=== PATIENT | male | born 1975 | race Caucasian/White ===

== ENCOUNTER 2021-04-07 17:52 | Emergency (ER) | payer OTHER ==
[~2021-04-07] VITALS: Ht 152.4 cm; Wt 68.0 kg
[2021-04-07] MEDS ORDERED: OXYC30TA2 PO (18:17)
--- NOTE | 2021-04-07 18:20 | NUR ---
Pt refusing any blood test at this time "just want to see doctor and get pain meds"
[2021-04-07] MEDS ORDERED: HYDROMORPHONE 1 MG/1 ML DISP.SYRIN IM ONE (18:30)
[2021-04-07] MEDS ORDERED: HYDROMORPHONE 1 MG/1 ML DISP.SYRIN ONE (18:35)
--- NOTE | 2021-04-07 18:44 | NUR ---
pt asked for juice and crackers- tolerated well
[2021-04-07 18:54] VITALS: BP 128/81
--- NOTE | 2021-04-07 19:06 | NUR ---
Patient discharged to home in stable condition. Written and verbal after care instructions given. Patient verbalizes understanding of instruction.
--- NOTE | 2021-04-07 21:06 | NUR ---
CALLED CALL THE CAR AND SPOKE WITH JANN. RESERVATION NUMBER FOR PICKUP IS [id number]. ETA FOR TRANSPORT ETA IS 45-60 MIN
--- NOTE | 2021-04-07 22:44 | NUR ---
[facility] ETA IS 2330
== END 2021-04-07 18:54 | disposition home or self-care (01) ==
LOC: ER 17:54
DX: R10.9 Unspecified abdominal pain (principal); Z76.0 Encounter for issue of repeat prescription; F32.9 Major depressive disorder, single episode, unspecified; Z98.890 Other specified postprocedural states; Z88.0 Allergy status to penicillin; Z88.6 Allergy status to analgesic agent; Z88.1 Allergy status to other antibiotic agents; Z88.8 Allergy status to other drugs, medicaments and biological substances; Z59.00 Homelessness unspecified; Z79.899 Other long term (current) drug therapy
CPT/HCPCS: 96372; 99283; J1170

== ENCOUNTER 2025-03-08 15:47 | Emergency (ER) | payer OTHER ==
[~2025-03-08] VITALS: Ht 172.7 cm; Wt 74.8 kg
[~2025-03-08 15:47] MED LIST: OXYC30TA2 PO
[2025-03-08] MEDS ORDERED: dexaMETHasone SOD PHOSPHATE 4 MG/ML VIAL ONE (17:17)
[2025-03-08] MEDS ORDERED: GABAPENTIN 100 MG CAPSULE ONE (17:17)
[2025-03-08] MEDS: dexaMETHasone SOD PHOSPHATE 4 MG/ML VIAL IM ONE ×2 (17:35→18:38)
[2025-03-08] MEDS: GABAPENTIN 100 MG CAPSULE PO ONE (17:35)
[2025-03-08] MEDS ORDERED: dexaMETHasone SOD PHOSPHATE 1 ML ONE (18:27)
[2025-03-08] MEDS ORDERED: SUMATRIPTAN SUCCINATE 6 MG/0.5 ML VIAL SQ ONE (18:27)
[2025-03-08] MEDS ORDERED: METOCLOPRAMIDE HCL 10 MG/2 ML VIAL ONE (18:27)
[2025-03-08] MEDS: METOCLOPRAMIDE HCL 10 MG/2 ML VIAL IM ONE (18:38)
[2025-03-08] MEDS: SUMATRIPTAN SUCCINATE 6 MG/0.5 ML VIAL SQ ONE (18:38)
[2025-03-08 19:38] VITALS: BP 141/87; TEMP 98.3; O2SAT 97
== END 2025-03-08 19:39 | disposition home or self-care (01) ==
LOC: ER 15:56
DX: H57.12 Ocular pain, left eye (principal); M54.2 Cervicalgia; G89.29 Other chronic pain; F32.A Depression, unspecified; Z59.00 Homelessness unspecified; Z88.0 Allergy status to penicillin; Z88.1 Allergy status to other antibiotic agents; Z88.5 Allergy status to narcotic agent
CPT/HCPCS: 99283; 96372; 72040; J1100; J2765; J3030